=== PATIENT | female | born 2000 ===

== ENCOUNTER 2022-10-18 10:06 | Outpatient (CLI) | payer OTHER | END 2022-10-18 12:19 | disposition home or self-care (01) | LOC: PRENATAL 10:06 | PROVIDERS: ATTEND Obstetrics & Gynecology Maternal & Fetal Medicine | DX: O36.80X0 Pregnancy with inconclusive fetal viability, not applicable or unspecified (principal); Z3A.13 13 weeks gestation of pregnancy ==